=== PATIENT | male | born 1940 | race Caucasian/White ===

== ENCOUNTER → 2017-06-10 | Outpatient (CLI) | payer MEDICARE, BC ==
[~2017-06-10] MED LIST: ALPRAZOLAM0.5 MG PO; AMARYL1 MG PO; AMLODIPINE BESY10 MG PO; DEXILANT60 MG PO; FLOMAX0.4 M1 PO; LANSOPRAZOLE30 M2 PO; METFORMIN HCL500 M1 PO; PLAVIX PO; RAPAFLO4 MG PO; VITAMIN B 12 PO
== END | disposition home or self-care (01) ==
LOC: CRAD 09:28
DX: R13.10 Dysphagia, unspecified (principal); R13.11 Dysphagia, oral phase; R13.13 Dysphagia, pharyngeal phase
CPT/HCPCS: 74230; 92611; G8996-GN; G8997-GN; G8998-GN